=== PATIENT | female | born 1985 | race American Indian/Alaskan Native ===

== ENCOUNTER 2018-05-16 08:39 | Day surgery (SDC) | payer MEDICAID ==
[2018-05-15 10:37] VITALS: BMI 24.7
[2018-05-16 09:57] VITALS: O2SAT 100
--- NOTE | 2018-05-16 11:37 | PCM.SURG1 ---
Surgeon's Initial Post Op Note - Surgeon's Notes Surgeon: Dr Gao Broadcast Journalist: Dr Jerome PGY4, Dr Pendleton PGY2 Type of Anesthesia: General Endo Pre-Operative Diagnosis: cholelithiasis Operative Findings: cholelthiasis, intra-hepatic gallbladder Post-Operative Diagnosis: cholelithiasis Operation Performed: laparoscopic cholecystectomy Specimen/Specimens Removed: gallbladder Estimated Blood Loss: EBL {In ML}: 20 Blood Products Given: N/A Drains Used: No Drains Post-Op Condition: Good Date of Surgery/Procedure: 05/16/18 Time of Surgery/Procedure: 11:37
[2018-05-16] MEDS ORDERED: ceFAZolin IV 1 gm in Dextrose 1 GM/50 ML BAG IVPB ONE (11:41)
[2018-05-16] MEDS ORDERED: Oxycodone/Acetaminophen 5/325 mg Tab PO PRN (11:57)
[2018-05-16] MEDS ORDERED: HYDROmorphone 0.5 mg/0.5 ml ISec ONE (11:59)
[2018-05-16] MEDS: HYDROmorphone 0.5 mg/0.5 ml ISec IVP PRN ×5 (12:10→13:04)
[2018-05-16 16:01] VITALS: BP 123/58; PULSE 64; RESP 18; TEMP 98
--- NOTE | 2018-05-17 03:24 | OP ---
PROCEDURE DATE: 05/16/2018 SURGERY: Laparoscopic cholecystectomy. INDICATION: Symptomatic cholelithiasis. SURGEON: Enrique Gao MD ASSISTANTS: Kennedy Jerome DO, PGY-4 as well as Razia Pendleton DO, PGY-2. PREOPERATIVE DIAGNOSIS: Symptomatic cholelithiasis. POSTOPERATIVE DIAGNOSIS: Symptomatic cholelithiasis. PROCEDURE: Laparoscopic cholecystectomy. DESCRIPTION OF PROCEDURE: The patient was brought to the operating room and placed on the table in supine position. Time-outs were performed using both preinduction and pre-incision anesthesia checklists to verify correct patient, procedure, site and additional critical information prior to the beginning of general anesthesia. General anesthesia was then initiated. The patient was intubated. The patient was prepped and draped in a sterile fashion. A subumbilical incision was made using a 11-blade. The Verses needle was then inserted. Proper position was confirmed by opening pressure of 3mmHg. Abdomen was then insufflated up to 15 mmHg. At this point, using the Visiport, a 12-mm trocar was placed through the same incision. The layers were identified as they were passed through into the abdomen, which was then entered safely. The camera was inserted. The underlying bowel and surrounding area was assessed for any injury, which there was none. At this point, attention was drawn to the right upper quadrant towards the gallbladder fossa. The gallbladder was mildly distended. No signs of acute cholecystitis. No significant adhesions. The patient was placed in reverse Trendelenburg with the right side up. Additional 5-mm trocar was then placed subxiphoid as well as midclavicular line, two 5-mm trocars. Both were inserted without difficultly. The gallbladder was then grasped and lifted towards the head of the patient. Infundibulum was then retracted inferolaterally to expose Calot's triangle. Peritoneum overlying the infundibulum was incised and shifted inferiorly. The cystic duct and artery were then identified, dissected circumferentially until the critical view of the safety was obtained. At this point, it was very clear that there was one single solitary structure entering into the infundibulum of the gallbladder as well as a posterior structure that was clearly pulsatile the cystic artery. Given the anatomical nature of the patient, the CBD was also identified distal to the cystic duct as it though posteriorly to enter the gallbladder. Attention was then drawn to actual ligation of these structures, though two clips using a 5-mm port were applied distally to the cystic duct as well as one proximally, and then this was taken with sharp dissection using scissors. The same procedure was then carried out for the cystic artery as well, two proximally and one distally on the gallbladder side. There was hemostasis and no evidence of any bleeding. The gallbladder was then dissected off the liver bed using the spatula as electrocautery. Hemostasis was achieved. The gallbladder was placed to an endoscopic retrieval bag and removed through the periumbilical incision. Irrigation was then performed. There was no spillage of any stones or bile. The underlying gallbladder fossa was once again evaluated for any signs of bleeding, which there was none. At this point, we desufflated the abdomen and using a 0 Vicryl and UR-6 under direct vision, we closed the fascia of the umbilical port. The remaining ports were then closed simply with 4-0 Monocryl in an interrupted fashion. The abdomen was then cleaned off. Steri-Strips were applied. A sterile dressing was then applied as well. The patient was extubated in the OR and transferred to PACU in stable condition. ESTIMATED BLOOD LOSS: 10 mL. Kennedy Jerome DO Enrique Gao MD [facility]
== END 2018-05-16 15:40 | disposition home or self-care (01) ==
LOC: C.SDS 08:39 → MERGE 10:00 → C.SDS 15:40
PROVIDERS: ATTEND Surgery
DX: K80.12 Calculus of gallbladder with acute and chronic cholecystitis without obstruction (principal); K80.10 Calculus of gallbladder with chronic cholecystitis without obstruction
CPT/HCPCS: 47562; 88304; J0690; J1170; J2405